=== PATIENT | male | born 1970 | race African-American/Black ===

== ENCOUNTER 2019-05-09 01:20 | Emergency (ER) | END 2019-05-09 03:15 | disposition home or self-care (01) | DX: K21.9 Gastro-esophageal reflux disease without esophagitis (principal) | CPT/HCPCS: 71045; 80048; 80076; 83690; 84484; 85025; 93005; 96374; 96375; 99284; C9113; J1170; J2405 ==

== ENCOUNTER 2020-04-20 06:21 | Emergency (ER) | payer MEDICAID ==
[~2020-04-20] VITALS: Ht 190.5 cm; Wt 81.6 kg
--- NOTE | 2020-04-20 06:44 | NUR ---
ERMD at bedside for MSE
[2020-04-20] MEDS ORDERED: KETOROLAC TROMETHAMINE 30 MG INJ ONE (06:54)
[2020-04-20] MEDS ORDERED: KETOROLAC TROMETHAMINE 30 MG INJ IM ONE (07:00)
--- NOTE | 2020-04-20 07:16 | NUR ---
Report given to CRISTIANA Waggoner for continuity of care.
[2020-04-20 07:24] LABS: *BILIRUBIN,URIN NEGATIVE (NEGATIVE); *CLARITY,URINE SLIGHTLY CLOUDY (CLEAR); *COLOR,URINE YELLOW (YELLOW); *KETONES,URINE NEGATIVE (NEGATIVE); *UROBILINOGEN,URINE 0.2 E.U./dl (NORMAL); LEUKOCYTE ESTERASE ,URINE NEGATIVE (NEGATIVE); NITRITE, URINE NEGATIVE (NEGATIVE); PH,URINE 6.5 (5.0-8.0); UGLUCOSE NEGATIVE (NEGATIVE)
[2020-04-20] MEDS ORDERED: IV NORMAL SALINE 1000 ML BAG IV ONE (07:30)
[2020-04-20] MEDS ORDERED: MORPHINE SULFATE 2 MG/1 ML DISP.SYRIN IV ONE (07:30)
[2020-04-20] MEDS ORDERED: ONDANSETRON 4 MG/2 ML VIAL IV ONE (07:30)
[2020-04-20] MEDS ORDERED: MORPHINE SULFATE 2 MG/1 ML DISP.SYRIN ONE (07:34)
[2020-04-20] MEDS ORDERED: ONDANSETRON 4 MG/2 ML VIAL ONE (07:34)
[2020-04-20 07:35] LABS: *BLOOD, URINE TRACE (NEGATIVE)
[2020-04-20 07:40] LABS: BASOPHILS % (AUTO) 1.3 % (0.0-2.0); EOSINOPHILS % (AUTO) 0.7 % (0.0-7.0); HEMATOCRIT 42.3 % (36.7-47.1); LYMPHOCYTES # (AUTO) 1.4 K/uL (20.0-40.0); LYMPHOCYTES % (AUTO) 56.4 % (20.5-51.5); MEAN CORPUSCULAR HGB CONC 33 g/dL (32.5-36.3); MEAN CORPUSCULAR VOLUME 87.4 fL (73.0-96.2); MONOCYTES # (AUTO) 0.4 K/uL (2.0-10.0); MONOCYTES % (AUTO) 16.9 % (0.0-11.0); NEUTROPHILS # (AUTO) 0.6 K/uL (1.8-8.9); NEUTROPHILS % (AUTO) 24.7 % (38.5-71.5); PLATELET COUNT (AUTO) 222 K/uL (152-348); RED BLOOD CELL COUNT(AUTO) 4.83 MIL/uL (4.06-5.63); WHITE BLOOD COUNT (AUTO) 2.4 K/uL (3.6-10.2)
[2020-04-20 07:57] LABS: BILIRUBIN,DIRECT 0.1 mg/dL (0.0-0.2); BILIRUBIN,TOTAL 0.5 mg/dL (0.2-1.0); POTASSIUM 4.1 mmol/L (3.5-5.1); TOTAL PROTEIN, SERUM 8.1 g/dL (6.4-8.2)
--- NOTE | 2020-04-20 09:50 | NUR ---
Patient discharged to home in stable condition. Written and verbal after care instructions given. Patient verbalizes understanding of instructions. Stressed follow up or return to ER for worsening s/s.pt walks in steaddy gait. pt not driving, using uber.
[2020-04-20 09:52] VITALS: BP 111/81
[2020-04-20 13:27] LABS: BACTERIA,URINE NONE SEEN /HPF (NONE SEEN); SPERM,URINE PRESENT /HPF (NONE SEEN); SQUAMOUS EPITHELIAL CELL,UR FEW /HPF (NONE SEEN); WBC,URINE NONE SEEN /HPF (0-3)
[2020-04-20 20:13] LABS: LYMPHOCYTES % (MANUAL) 60 % (20-40); NEUTROPHILS % (MANUAL) 25 % (42-75)
[2020-04-20 20:14] LABS: MONOCYTES % (MANUAL) 13 % (2-10)
== END 2020-04-20 09:52 | disposition home or self-care (01) ==
LOC: ER 06:31
DX: M54.42 Lumbago with sciatica, left side (principal); R10.32 Left lower quadrant pain; R74.8 Abnormal levels of other serum enzymes; K42.9 Umbilical hernia without obstruction or gangrene; D72.819 Decreased white blood cell count, unspecified; Z86.19 Personal history of other infectious and parasitic diseases
CPT/HCPCS: 36415; 74176; 80048; 80076; 81001; 85007; 85025; 96361; 96374; 96375; 99284; J1885; J2270; J2405; 70030-TC; A4663; J7030

== ENCOUNTER 2021-01-04 02:24 | Emergency (ER) | payer MEDICAID ==
[~2021-01-04] VITALS: Ht 190.5 cm; Wt 81.6 kg
[2021-01-04] MEDS: IBUPROFEN 600 MG TABLET PO ONE (02:55)
[2021-01-04] MEDS: HYDROCODONE/APAP 5-325MG TABLET PO ONE (02:55)
[2021-01-04] MEDS ORDERED: HYDROCODONE/APAP 5-325MG TABLET ONE (03:00)
[2021-01-04] MEDS ORDERED: IBUPROFEN 800 MG TABLET ONE (03:00)
[2021-01-04 03:16] LABS: HEMATOCRIT 41.2 % (36.7-47.1); MEAN CORPUSCULAR HEMOGLOBIN 28.7 uug (23.8-33.4); MEAN CORPUSCULAR VOLUME 85.8 fL (73.0-96.2); PLATELET COUNT (AUTO) 155 K/uL (152-348)
[2021-01-04 03:25] LABS: BILIRUBIN,DIRECT 0.3 mg/dL (0.0-0.2); BILIRUBIN,TOTAL 1.2 mg/dL (0.2-1.0); CREATININE 0.9 mg/dL (0.6-1.3); POTASSIUM 3.7 mmol/L (3.5-5.1); TOTAL PROTEIN, SERUM 8.4 g/dL (6.4-8.2)
[2021-01-04 03:42] LABS: MAGNESIUM 1.8 mg/dL (1.8-2.4); PHOSPHOROUS 3.4 mg/dL (2.5-4.9)
[2021-01-04] MEDS: DEXAMETHASONE SOD PHOSPHATE 4 MG INJ IM ONE (03:42)
[2021-01-04] MEDS ORDERED: DEXAMETHASONE SOD PHOSPHATE 10 MG INJ ONE (03:45)
[2021-01-04 03:46] LABS: *MONOTEST NEGATIVE (NEGATIVE)
[2021-01-04] MEDS ORDERED: DEXAMETHASONE SOD PHOSPHATE 4 MG INJ ONE (03:46)
[2021-01-04] MEDS ORDERED: IBUP-1957 PO (04:20)
[2021-01-04] MEDS ORDERED: AMOX-430 PO (04:20)
[2021-01-04] MEDS: AMOXICILLIN-CLAVUL 875-125MG TABLET PO ONE (04:30)
[2021-01-04] MEDS ORDERED: AMOXICILLIN-CLAVUL 875-125MG TABLET ONE (04:35)
--- NOTE | 2021-01-04 04:45 | NUR ---
Patient discharged to home in stable condition. Written and verbal after care instructions given. Patient verbalizes understanding of instructions. Stressed follow up or return to ER for worsening s/s.
[2021-01-04 04:46] VITALS: BP 133/89
[2021-01-04 05:03] LABS: BAND % (MANUAL) 1 % (0-10); LYMPHOCYTES % (MANUAL) 13 % (20-40); MONOCYTES % (MANUAL) 15 % (2-10); NEUTROPHILS % (MANUAL) 71 % (42-75)
== END 2021-01-04 04:46 | disposition home or self-care (01) ==
LOC: ER 02:27
DX: J01.90 Acute sinusitis, unspecified (principal); J02.9 Acute pharyngitis, unspecified; Z20.822 Contact with and (suspected) exposure to COVID-19; Z91.018 Allergy to other foods; Z86.19 Personal history of other infectious and parasitic diseases
CPT/HCPCS: 36415; 80048; 80076; 83735; 84100; 85007; 85025; 86308; 86403; 87040 ×2; 87070; 87426; 96372; 99284; J1100 ×2; 70030-TC; A4663

== ENCOUNTER 2021-04-05 00:15 | Emergency (ER) | payer MEDICAID ==
[~2021-04-05] VITALS: Ht 190.5 cm; Wt 88.5 kg
[~2021-04-05 00:15] MED LIST: AMOX-430 PO; IBUP-1957 PO
--- NOTE | 2021-04-05 00:25 | NUR ---
patient arrived in the ER with c/o of wound on the left foot. Patient reported 45lbs weight fell on his left foot. Patient noted with open wound on top of left foot.
--- NOTE | 2021-04-05 00:26 | NUR ---
Dr. Noyola on bedside for MSE.
[2021-04-05] MEDS ORDERED: TDAP DIPH,PERTUSS,TET VAC/PF 0.5 ML DISP.SYRIN IM ONE ×2 (00:30→00:37)
[2021-04-05] MEDS ORDERED: KETOROLAC TROMETHAMINE 60 MG INJ IM ONE ×2 (00:45→00:48)
[2021-04-05] MEDS ORDERED: BACITRACIN ZINC OINT 15 GM TUBE ONE (01:25)
[2021-04-05] MEDS ORDERED: BACITRACIN ZINC OINT 15 GM TUBE TOP ONE (01:30)
--- NOTE | 2021-04-05 01:30 | NUR ---
Dr. Noyola on bedside for MSE.
--- NOTE | 2021-04-05 01:50 | NUR ---
Patient discharged to home in stable condition. Written and verbal after care instructions given. Patient verbalizes understanding of instructions. Stressed follow up or return to ER for worsening s/s. Patient ambulated fr the ER with crutches. All belongings with patient.
[2021-04-05 01:54] VITALS: BP 130/68
== END 2021-04-05 01:50 | disposition home or self-care (01) ==
LOC: ER 00:18
DX: S93.602A Unspecified sprain of left foot, initial encounter (principal); S90.812A Abrasion, left foot, initial encounter; W20.8XXA Other cause of strike by thrown, projected or falling object, initial encounter; Y93.B3 Activity, free weights; Y92.89 Other specified places as the place of occurrence of the external cause; Z86.19 Personal history of other infectious and parasitic diseases; Z91.018 Allergy to other foods
CPT/HCPCS: 73630; 90471; 90715; 96372; 99284; J1885; A4663

== ENCOUNTER 2022-03-04 23:10 | Emergency (ER) | payer OTHER, MEDICAID ==
[~2022-03-04] VITALS: Ht 190.5 cm; Wt 83.9 kg
--- NOTE | 2022-03-04 23:36 | NUR ---
Patient walked into ER with a steady gait. NAD noted. A/Ox3.
--- NOTE | 2022-03-04 23:50 | NUR ---
Radiology at bedside.
--- NOTE | 2022-03-04 23:56 | NUR ---
Dr. Noyola at bedside. MSE in progress.
--- NOTE | 2022-03-05 00:07 | NUR ---
Flu and COVID test sent to lab.
[2022-03-05] MEDS ORDERED: IBUPROFEN 800 MG TABLET ONE (00:11)
[2022-03-05] MEDS ORDERED: MORPHINE SULFATE 4 MG/1 ML DISP.SYRIN ONE (00:12)
[2022-03-05] MEDS ORDERED: IBUPROFEN 800 MG TABLET PO ONE (00:15)
[2022-03-05] MEDS ORDERED: MORPHINE SULFATE 4 MG/1 ML DISP.SYRIN IM ONE (00:15)
[2022-03-05] MEDS ORDERED: OSEL75CA PO (03:39)
[2022-03-05] MEDS ORDERED: BENZ-13 PO (03:39)
--- NOTE | 2022-03-05 03:55 | NUR ---
Patient discharged to home in stable condition. A/O x4. NAD noted. Ambulatory with a steady gait. Written and verbal after care instructions given. Patient verbalizes understanding of instructions. Stressed follow up or return to ER for worsening s/s.
[2022-03-05 04:27] VITALS: BP 125/79
== END 2022-03-05 03:55 | disposition home or self-care (01) ==
LOC: ER 23:20
DX: J10.1 Influenza due to other identified influenza virus with other respiratory manifestations (principal); I48.91 Unspecified atrial fibrillation; B19.10 Unspecified viral hepatitis B without hepatic coma; Z91.018 Allergy to other foods; Z20.822 Contact with and (suspected) exposure to COVID-19
CPT/HCPCS: 71045; 87400; A4663; J2270